=== PATIENT | male | born 1995 | race Caucasian/White ===

== ENCOUNTER 2022-01-04 14:27 | Emergency (ER) | payer OTHER, SELFPAY ==
--- NOTE | 2022-01-04 14:28 | ED.BACK ---
HPI - Back Pain/Injury General Chief Complaint: Urogenital-Male Stated Complaint: Lower back on sides pain Time Seen by Provider: 01/04/22 14:28 Source: patient and RN notes reviewed History of Present Illness HPI Narrative: Patient is a 26-year-old male who presents the urgent care with complaints of bilateral low back pain. Patient states that he assumed that he just strained his back after falling asleep in a recliner approximately a month ago however the pain has not subsided. Patient has been taking ibuprofen and Tylenol. States that it gets worse with movement. Patient denies of any blood in the urine, burning or urgency. States that sometimes he feels that he has problems pain . Patient denies of any nausea or vomiting. States that he has had a slight decrease in appetite. Denies any recent fevers. No other acute complaints. No acute distress noted. Patient read a plan of care. Some parts of this dictation were generated by voice recognition software and may contain typographical and/or grammatical inaccuracies. Related Data Home Medications Medication Instructions Recorded Confirmed No Home Medications 01/04/22 01/04/22 Allergies Allergy/AdvReac Type Severity Reaction Status Date / Time No Known Allergies Allergy Verified 01/04/22 14:45 Review of Systems Review of Systems: CONSTITUTIONAL: Denies fever, chills, or sweats. EYES: Denies visual changes, redness, or discharge. ENT: Denies rhinorrhea, congestion, sore throat, or otalgia. CARDIOVASCULAR: Denies chest pain, palpitations, or edema. RESPIRATORY: Denies cough or dyspnea. GASTROINTESTINAL: Denies abdominal pain, nausea, vomiting, or diarrhea. GENITOURINARY: Denies dysuria or hematuria. SKIN: Denies rash or itching. MUSCULOSKELETAL: Reports bilateral low back pain NEUROLOGIC: Denies headache, numbness, or weakness. All other systems reviewed are negative, except as documented in HPI. PMFSH Comments At the time of my signature, I reviewed and agree with the nursing past medical, surgical, social, and family history. There is no relevant family history pertinent to the patient complaint. Exam Narrative: GENERAL: This is a well-nourished, well-developed patient, in no apparent distress. HEAD: normocephalic, atraumatic. EYES: PERRL. Sclera clear/white. Vision is grossly intact. EARS: External ears normal NOSE: External nose normal with no obvious nasal discharge, nares without redness, no rhinorrhea. THROAT: Mucous membranes moist NECK: Neck supple CARDIOVASCULAR: Regular rate and rhythm without murmurs, gallops, or rubs. RESPIRATORY: Clear to auscultation. Breath sounds equal bilaterally. No wheezes, rales, or rhonchi. SKIN: warm, intact with no suspicious lesions or rash, good texture and turgor. NEURO: awake, alert, and oriented to person, place and time. There were no obvious focal neurologic abnormalities. EXTREMITIES: No clubbing, cyanosis, or edema. BACK: Mild right CVA tenderness Course Course Level of Care: Express Care Visit Vital Signs Vital signs: Vital Signs Temperature 98.9 F 01/04/22 14:33 Pulse Rate 145 H 01/04/22 14:33 Respiratory Rate 20 01/04/22 14:33 Blood Pressure 146/87 H 01/04/22 14:33 Pulse Oximetry 96 01/04/22 14:33 Oxygen Delivery Room Air 01/04/22 14:33 Temperature 98.9 F 01/04/22 14:33 Pulse Rate 145 H 01/04/22 14:33 Respiratory Rate 20 01/04/22 14:33 Blood Pressure 146/87 H 01/04/22 14:33 Pulse Oximetry 96 01/04/22 14:33 Oxygen Delivery Room Air 01/04/22 14:33 Reviewed-patient is informed that they may have pre-hypertension or hypertension based on a blood pressure reading in the department. I recommend the patient call the primary care provider listed on their discharge instructions or a physician of their choice this week to arrange follow-up for further evaluation of possible pre-hypertension or hypertension. MDM - Back Pain/Injury MDM Narrative Medical decisi
[2022-01-04 14:33] VITALS: BP 146/87; PULSE 145; RESP 20; TEMP 37.2; O2SAT 96
== END 2022-01-04 14:57 | disposition left against medical advice (07) ==
PROVIDERS: Emergency Provider Nurse Practitioner Family
DX: M54.50 Low back pain, unspecified (principal)
CPT/HCPCS: 81003; 99212; G0463